=== PATIENT | female | born 1965 | race African-American/Black ===

== ENCOUNTER 2019-08-21 22:04 | Emergency (ER) | payer SELFPAY ==
[~2019-08-21] VITALS: Ht 170.2 cm; Wt 56.5 kg
[2019-08-21 22:22] VITALS: BP 135/78
== END 2019-08-22 03:29 | disposition home or self-care (01) ==
LOC: ER 22:04
DX: J02.9 Acute pharyngitis, unspecified (principal); R50.81 Fever presenting with conditions classified elsewhere; R05 Cough; J45.909 Unspecified asthma, uncomplicated
CPT/HCPCS: 71045; 99283